=== PATIENT | female | born 1985 | race Caucasian/White ===

== ENCOUNTER 2017-01-25 05:30 | Inpatient (IN) | payer MEDICAID ==
[~2017-01-25] VITALS: Ht 160 cm; Wt 84.2 kg
[2017-01-25] MEDS ORDERED: LACTATED RINGER'S 1,000 ML IV SCH (05:44)
[2017-01-25 05:59] VITALS: BP 115/76; PULSE 88; RESP 16; Ht 160 cm; Wt 84.2 kg
[2017-01-25] MEDS ORDERED: CEFAZOLIN 2 GM/50 ML (PMX) 50 ML IV SCH (06:00)
[2017-01-25] MEDS ORDERED: MISOPROSTOL 200 MCG TAB PR PRN ×2 (06:00→09:30)
[2017-01-25] MEDS ORDERED: METHYLERGONOVINE 0.2 MG INJ IM PRN ×2 (06:00→09:30)
[2017-01-25] MEDS ORDERED: CARBOPROST 250 MCG INJ IM PRN ×2 (06:00→09:30)
[2017-01-25] MEDS ORDERED: OXYTOCIN 30 UNITS/LR 500 ML IV PRN ×2 (06:00→09:30)
[2017-01-25 06:59] LABS: BASOPHILS % 0.4 % (0.0-2.0); EOSINOPHILS # 0.2 10^3/ul (0.0-0.5); EOSINOPHILS % 2.1 % (0.0-7.0); HEMATOCRIT 36.6 % (37.0-47.0); HEMOGLOBIN 12.2 g/dl (12.0-16.0); LYMPHOCYTES # 2.3 10^3/ul (0.8-2.9); LYMPHOCYTES % 29.7 % (15.0-51.0); MEAN CORPUSCULAR HGB CONC 33.3 g/dl (32.0-37.0); MEAN CORPUSCULAR VOLUME 87.1 fl (82.0-101.0); MONOCYTE # 0.5 10^3/ul (0.3-0.9); MONOCYTES % 6.3 % (0.0-11.0); NEUTROPHILS % 60.6 % (39.0-77.0); PLATELET COUNT 204 10^3/UL (140-415); RED CELL DISTRIBUTION WIDTH 15.8 % (11.5-14.5); WHITE BLOOD COUNT 7.7 10^3/ul (4.8-10.8)
[2017-01-25 07:08] LABS: INR 0.91; PROTIME 12.2 Sec (12.2-14.2)
[2017-01-25 07:09] LABS: PARTIAL THROMBOPLASTIN TIME 27.7 Sec (25.0-35.0)
[2017-01-25] MEDS ORDERED: morphine SULFATE/PF (10 MG/10 ML) INJ ONE (07:36)
[2017-01-25] MEDS ORDERED: FENTAnyl 50 MCG/ML VIAL ONE (07:36)
--- NOTE | 2017-01-25 07:45 | QN ---
Documentation Comment history and physical dictated CORINNA MCCOY MD Jan 25, 2017 07:45
[2017-01-25] MEDS ORDERED: PHENYLephrine (100 MCG/ML) 5ML SYG ONE ×2 (07:48→08:20)
[2017-01-25] MEDS ORDERED: DEXAMETHASONE 4 MG/ML 1 ML INJ ONE (07:50)
[2017-01-25] MEDS ORDERED: ONDANSETRON 4 MG INJ IV PRN (08:00)
[2017-01-25] MEDS ORDERED: HYDROmorphONE 1 MG/ML SYG IV PRN ×2 (08:00)
[2017-01-25] MEDS ORDERED: ZOLPIDEM 5 MG TAB PO PRN (08:00)
[2017-01-25] MEDS ORDERED: DIPHENHYDRAMINE 50 MG INJ IV PRN (08:00)
[2017-01-25] MEDS ORDERED: KETOROLAC 30 MG INJ IV PRN (08:00)
[2017-01-25] MEDS ORDERED: NALOXONE (0.4 MG/ML) INJ IV PRN (08:00)
[2017-01-25] MEDS ORDERED: ONDANSETRON 4 MG INJ ONE (08:21)
--- NOTE | 2017-01-25 08:52 | PREOPHP ---
DATE OF ADMISSION: 01/25/2017 HISTORY OF PRESENT ILLNESS: Ms. Ena Barger is a 31-year-old, 2, para 1, EDC 02/01/2017, intrauterine at 39 weeks' gestational age with a previous x1, admitted today for elective repeat delivery. Denies any contractions, vaginal bleeding or discharge. Her care took place at [facility]. PAST MEDICAL HISTORY: None. MEDICATIONS: vitamins. PAST SURGICAL HISTORY: One previous . OBSTETRICAL HISTORY: One previous delivered at 32 weeks secondary to preeclampsia. GYNECOLOGIC HISTORY: 12/ / 3-4 days. Denies any sexually transmitted disease. Sexually active with 1 partner. SOCIAL HISTORY: Denies any smoking, drugs or alcohol. FAMILY HISTORY: None. REVIEW OF SYSTEMS: All within normal except History of Present Illness. PHYSICAL EXAMINATION: HEENT: Within normal. LUNGS: CTA bilateral. CVS: S1, S2. Regular rhythm. ABDOMEN: Gravid and nontender. Negative CVA bilaterally. EXTREMITIES: Negative edema. No calf tenderness. VAGINAL: Exam deferred. ASSESSMENT: A 31-year-old, 2, para 1, intrauterine at 39 weeks' gestational age, previous section x1, desires elective repeat delivery. Declined vaginal after section. Signed consent for a repeat delivery. Risks, benefits, alternatives explained. All questions were answered. Dictated By: Jac Alatorre MD /[email or web address]/[email or web address] /Document#: [id number] TORI
[2017-01-25] MEDS ORDERED: LANOLIN 7 GM TUBE TOP PRN (09:30)
[2017-01-25] MEDS ORDERED: OXYCODONE/ACETAMINOPHEN (5/325) TAB PO PRN ×2 (09:30)
[2017-01-25] MEDS: OXYTOCIN 30 UNITS/LR 500 ML IV SCH ×2 (09:34→12:44)
--- NOTE | 2017-01-25 09:52 | OPR ---
DATE OF OPERATION: 01/25/2017 PREOPERATIVE DIAGNOSIS: A 31-year-old, 2, para 1, IUP at 39 weeks gestational age. Previous C- section x1. Desires elective repeat delivery. Declined . POSTOPERATIVE DIAGNOSIS: Same. OPERATIVE PROCEDURE: Repeat low transverse delivery via Pfannenstiel incision. SURGEON: Dr. Alatorre. SAMPLE WRAPPER: Dr. Mathews. ANESTHESIA: Spinal. COMPLICATIONS: None. ESTIMATED BLOOD LOSS: 500 mL. OPERATIVE FINDINGS AT SURGERY: A viable female, 9 and 9, consecutively at 1 and 5 minutes, weight 2940 g. Normal uterus, tubes, and ovaries. OPERATIVE PROCEDURE: After explaining the risks, benefits, alternatives, patient consented and signed chart. The patient was taken to the operating room where spinal anesthesia was found to be adequate. She was then prepared and draped in the normal sterile fashion with a leftward tilt. A Pfannenstiel skin incision was made with a scalpel and carried to the underlying fascia. The fascia was incised in the midline. The incision was extended laterally with Clarke scissors. The superior aspect of the fascial incision was grasped with Rosas clamps, elevated, and underlying rectus muscles entered bluntly. Attention was then turned to the inferior aspect incision which in similar fashion was grasped, tented up with Rosas clamps and the rectus muscle entered bluntly. The rectus muscle was in midline. Peritoneum identified, tented up, entered sharply with Metzenbaum scissors. The Pfannenstiel incision was extended superiorly and inferiorly with good visualization of bladder. The bladder blade was inserted and the vesicouterine peritoneum identified, grasped with pickups, entered sharply with Metzenbaum scissors. This incision was extended laterally and the bladder flap created digitally. The bladder blade was then reinserted in the lower segment in a transverse fashion with the scalpel. The incision was extended laterally. The bladder blade was removed at the head. The nose and mouth were suctioned. Cord clamped and cut. The infant was handed off to awaiting pediatricians. The placenta was then removed. The uterine incision was repaired with 1-0 chromic in a running, locked fashion. A 2nd layer of same suture was used for imbrication to obtain excellent hemostasis. The uterus was returned to the abdomen. The gutters were cleared of all clots. The patient rectus abdominal muscles were reapproximated with 3-0 Vicryl. The fascia was reapproximated with 0 Vicryl in a running fashion. The skin was closed with absorbable dulce. The patient tolerated the procedure well. Sponge, lap, needle counts were correct. The patient was taken to the recovery room in stable condition. Dictated By: Jac Alatorre MD /joan/more /Document#: [id number] TORI
[2017-01-25] MEDS: IBUPROFEN 600 MG TAB PO SCH ×2 (12:00→18:00)
[2017-01-25 15:30] VITALS: BP 119/74; PULSE 80; RESP 17
[2017-01-25 16:15] VITALS: BP 124/75; PULSE 87; RESP 18
[2017-01-25 16:45] VITALS: BP 123/76; PULSE 87; RESP 20
[2017-01-25] MEDS: LACTATED RINGER'S 1,000 ML IV SCH (18:22)
[2017-01-25 20:00] VITALS: BP 111/69; PULSE 84; RESP 18
[2017-01-25] MEDS: SENNA/DOCUSATE NA (8.6MG/50MG) TAB PO SCH (21:00)
[2017-01-26 00:30] VITALS: BP 105/65; PULSE 75; RESP 18
[2017-01-26] MEDS: LACTATED RINGER'S 1,000 ML IV SCH (01:48)
[2017-01-26 03:56] VITALS: BP 117/72; PULSE 59; RESP 18
[2017-01-26] MEDS: IBUPROFEN 600 MG TAB PO SCH ×4 (06:00→17:41)
[2017-01-26 08:00] VITALS: BP 110/86; PULSE 86; RESP 18
[2017-01-26] MEDS: SENNA/DOCUSATE NA (8.6MG/50MG) TAB PO SCH ×2 (08:46→21:55)
[2017-01-26 09:06] LABS: BASOPHILS % 0.2 % (0.0-2.0); EOSINOPHILS # 0.1 10^3/ul (0.0-0.5); EOSINOPHILS % 0.5 % (0.0-7.0); HEMATOCRIT 32.9 % (37.0-47.0); HEMOGLOBIN 11.2 g/dl (12.0-16.0); LYMPHOCYTES # 2.5 10^3/ul (0.8-2.9); LYMPHOCYTES % 19.2 % (15.0-51.0); MEAN CORPUSCULAR HEMOGLOBIN 29.9 pg (29.0-33.0); MEAN CORPUSCULAR VOLUME 87.7 fl (82.0-101.0); MEAN PLATELET VOLUME 12.8 fl (7.4-10.4); MONOCYTE # 0.8 10^3/ul (0.3-0.9); MONOCYTES % 6.3 % (0.0-11.0); NEUTROPHILS % 73.3 % (39.0-77.0); PLATELET COUNT 200 10^3/UL (140-415); RED BLOOD COUNT 3.75 10^6/ul (4.20-5.40); RED CELL DISTRIBUTION WIDTH 15.9 % (11.5-14.5); WHITE BLOOD COUNT 13.2 10^3/ul (4.8-10.8)
[2017-01-26 16:00] VITALS: BP 106/65; PULSE 85; RESP 18
[2017-01-26 20:00] VITALS: BP 113/68; PULSE 76; RESP 18
--- NOTE | 2017-01-26 23:13 | QN ---
Documentation Comment patient seen and evaluated no complaints vs stable afebrile ab c/d/i no distention nt extremity no edema no calf tenderness a/ sp cd pod 1 doing well p/ iron supplement CORINNA MCCOY MD Jan 26, 2017 23:13
[2017-01-27] MEDS: IBUPROFEN 600 MG TAB PO SCH ×5 (00:07→23:39)
[2017-01-27 03:55] VITALS: BP 110/72; PULSE 75; RESP 18
[2017-01-27 08:00] VITALS: BP 105/62; PULSE 140; RESP 18
[2017-01-27] MEDS: FERROUS GLUCONATE (EC) 325 MG TAB PO SCH ×2 (10:10→21:57)
[2017-01-27] MEDS: SENNA/DOCUSATE NA (8.6MG/50MG) TAB PO SCH ×2 (10:10→21:57)
--- NOTE | 2017-01-27 12:03 | QN ---
Documentation Comment POD#2 is stable afebrile No Vb +BM +voids Vs Stable Gen NAD Abd soft NT ND Incision ntact Genitalia No blood at perinium --->discharge plan tomorrow -->ambulation SAMIRA TERRY M.D. Jan 27, 2017 12:03
[2017-01-27 15:50] VITALS: BP 114/74; PULSE 83; RESP 18
[2017-01-27 19:50] VITALS: BP 116/74; PULSE 79; RESP 19
[2017-01-28 03:50] VITALS: BP 117/76; PULSE 62; RESP 19
[2017-01-28] MEDS: IBUPROFEN 600 MG TAB PO SCH ×4 (05:54→23:50)
[2017-01-28 08:00] VITALS: BP 116/79; PULSE 69; RESP 18
[2017-01-28] MEDS: FERROUS GLUCONATE (EC) 325 MG TAB PO SCH ×2 (10:06→21:23)
[2017-01-28] MEDS: SENNA/DOCUSATE NA (8.6MG/50MG) TAB PO SCH ×2 (10:07→21:23)
--- NOTE | 2017-01-28 12:06 | QN ---
Documentation Comment Progress Note POD #3 Pt doing well and . + flatus and pain management adequate. Baby not d/c'ed today so mom will be staying. T=98 BP 116/79 Fundus firm NT, incision clean, dry and intact with steristrips present. Ext NT, 1+ edema. P: Continue care and plan d/c tomorrow. FOREIGN LEVINE MD Jan 28, 2017 12:06
[2017-01-28 19:30] VITALS: BP 113/67; PULSE 76; RESP 18
[2017-01-29 04:00] VITALS: BP 120/77; PULSE 71; RESP 18
[2017-01-29] MEDS: IBUPROFEN 600 MG TAB PO SCH ×2 (05:50→11:58)
[2017-01-29 08:30] VITALS: BP 118/76; PULSE 71; RESP 17
[2017-01-29] MEDS: FERROUS GLUCONATE (EC) 325 MG TAB PO SCH (08:50)
[2017-01-29] MEDS: SENNA/DOCUSATE NA (8.6MG/50MG) TAB PO SCH (08:50)
--- NOTE | 2017-01-29 09:58 | QN ---
Documentation Comment Progress note postop day 4 Patient seen and examined Patient has no complaints she is ambulating toward the right positive positive bowel Vital signs stable Abdomen clean dry and intact no distention Extremities negative edema no calf tenderness Assessment postop day 4 status post delivery Plan discharge home today follow-up in the office in 2 weeks CORINNA MCCOY MD Jan 29, 2017 09:58
--- NOTE | 2017-01-29 09:59 | PD.PPDC ---
RECORDS CLERK Discharge Instruction Condition Patient Condition: Good Diet Diet: Resume Regular Diet Activity/Restrictions Activity: Normal Activity May Shower Restrictions: No Exercising No Lifting No Driving No Sexual Activity Nothing in the Vagina No [place] No Tampons, douche Wound/Drain Care Instructions Wound/Drain Care Instructions: Remove Steri Strips in 2 weeks Follow-up Follow-up with Physician: 2, Week/Weeks Return to clinic for LAB INTERN Instructions: Fever greater than 101 Chills Worsening abdominal pain Excessive Vaginal Bleeding More than 2 pads per hour Unable to tolerate diet OB Instructions: Breast Tenderness Depression Blurried Vision Headache Surgical Instructions: Incisional Drainage Incisional Redness CORINNA MCCOY MD Jan 29, 2017 09:59
--- NOTE | 2017-01-29 12:24 | DS ---
DATE OF ADMISSION: 01/25/2017 DATE OF DISCHARGE: 01/29/2017 PRIMARY DIAGNOSIS: A 31-year-old 2, para 1, intrauterine at 39 weeks gestational age. Previous x1. Desires elective repeat delivery. Declined . PROCEDURE: Repeat low transverse delivery. DISCHARGE CONDITION: Stable. BACTERIAL: None per vaginal. DISCHARGE INSTRUCTIONS: No heavy lifting x6 weeks. DIET: Regular. DISCHARGE MEDICATIONS: 1. Motrin. 2. Percocet. 3. Iron. 4. Colace. DISCHARGE SUMMARY: Ms. Barger is a 31-year-old, 2, para 2, status post repeat low transverse delivery on 01/25/2017. She had a viable female, 9 and 9 respectively at 1 and 5 minutes, weight 2940 g. She had undergone a postop day 1, 2, 3 and 4. Her incision is clean, dry, intact. She is ambulating. Positive flatulence. Positive bowel movement. She will be discharged today and followup in the office in 2 weeks for /postop care. Dictated By: Jac Alatorre MD /[email or web address]/[email or web address] /Document#: [id number]
== END 2017-01-29 17:36 | disposition home or self-care (01) | DRG 766 ==
LOC: L-D 05:30 → PP1 15:29
PROVIDERS: ADMIT Obstetrics & Gynecology; ATTEND Obstetrics & Gynecology
PROC: 10D00Z1 Extraction of Products of Conception, Low, Open Approach (ICD-10-PCS; principal; 2017-01-25 07:30)
DX: O34.211 Maternal care for low transverse scar from previous cesarean delivery (principal); Z37.0 Single live birth; Z3A.39 39 weeks gestation of pregnancy
CPT/HCPCS: 85025; 85610; 85730; 86592; 86850; 86900; 86901; 87340; 94760; 99464; J0690; J1100; J1885; J2274; J2370; J2405; J2590; J3010; J7120